=== PATIENT | male | born 1995 | race Caucasian/White ===

== ENCOUNTER 2021-07-05 23:43 | Emergency (ER) | payer SELFPAY ==
[2021-07-06 00:45] LABS: BASOPHIL 0.7 % (0-2); BILIRUBIN NEGATIVE (NEGATIVE); BLOOD NEGATIVE Ery/uL (NEGATIVE); CLARITY CLEAR (CLEAR); COLOR YELLOW (YELLOW); EOSINOPHIL 4.2 % (0-5); GLUCOSE (U) NORMAL (NORMAL); HCT 48.2 % (42.0-52.0); HGB 16.3 g/dl (13.2-18.0); LEUKOCYTES NEGATIVE Leu/uL (NEGATIVE); LYMPHOCYTE 26.7 % (15-48); MCH 31.2 pg (25.0-31.0); MCHC 33.8 g/dL (32.0-36.0); MCV 92.3 fL (78.0-100.0); MONOCYTE 11.7 % (0-12); MPV 10.2 fL (6.0-9.5); NEUTROPHIL 56.4 % (41-80); NITRITE NEGATIVE (NEGATIVE); NRBC 0; PLT 236 K/uL (150-400); PROTEIN NEGATIVE (NEGATIVE); RBC 5.22 M/uL (4.70-6.00); RDW 12.8 % (11.5-14.0); SPECIFIC GRAVITY 1.025 (1.001-1.030); UROBILINOGEN 0.2 mg/dL (0.2-1.0); WBC 7.2 K/uL (4.0-10.5)
[2021-07-06 01:02] LABS: ALBUMIN 4.1 g/dL (3.4-5.0); BILIRUBIN - TOTAL 0.6 mg/dL (0.2-1.0); BUN/CREAT RATIO (CALC) 12.5 RATIO; CREATININE 0.88 mg/dL (0.67-1.17); GLOBULIN (CALCULATION) 3.2 g/dL; POTASSIUM 4.6 mmol/L (3.5-5.1); TOTAL PROTEIN 7.3 g/dL (6.4-8.2)
[2021-07-06] MEDS ORDERED: IBUPROFEN800 MG PO (01:41)
[2021-07-06] MEDS ORDERED: ROBAXIN750 MG PO (01:41)
[2021-07-06] MEDS ORDERED: MEDROL 4MG DOSEP4 MG PO (01:41)
[2021-07-06] MEDS ORDERED: NORCO 5-325 TA1 EACH PO (01:41)
== END 2021-07-06 01:55 | disposition home or self-care (01) ==
LOC: FER 23:43
PROVIDERS: Emergency Medicine Emergency Medical Services
DX: R10.9 Unspecified abdominal pain (principal); F17.210 Nicotine dependence, cigarettes, uncomplicated
CPT/HCPCS: 36415; 70450; 80053; 81003; 85025; J1100; J1885; J2800; J7050